=== PATIENT | male | born 1990 | race Caucasian/White ===

== ENCOUNTER 2024-09-04 08:25 | Outpatient (CLI) | payer BC | END 2024-09-04 08:26 | disposition home or self-care (01) | LOC: CSHCT 08:25 | PROVIDERS: ATTEND Internal Medicine | DX: N13.30 Unspecified hydronephrosis (principal); Z90.49 Acquired absence of other specified parts of digestive tract | CPT/HCPCS: 74178 ==

== ENCOUNTER 2025-05-08 11:25 | Outpatient (CLI) | payer BC | END 2025-05-08 11:26 | disposition home or self-care (01) | LOC: CSHSLEEP 11:25 | PROVIDERS: ATTEND Internal Medicine | DX: G47.33 Obstructive sleep apnea (adult) (pediatric) (principal); G25.81 Restless legs syndrome; R53.83 Other fatigue; F32.A Depression, unspecified; K21.9 Gastro-esophageal reflux disease without esophagitis; E66.9 Obesity, unspecified; Z68.38 Body mass index [BMI] 38.0-38.9, adult; R06.83 Snoring; G47.00 Insomnia, unspecified; R35.1 Nocturia; I10 Essential (primary) hypertension; R09.02 Hypoxemia | CPT/HCPCS: 95800 ==

== ENCOUNTER 2025-09-02 08:53 | Outpatient (CLI) | payer BC | END 2025-09-02 08:54 | disposition home or self-care (01) | LOC: CSHSLEEP 08:53 | PROVIDERS: ATTEND Internal Medicine | DX: G47.33 Obstructive sleep apnea (adult) (pediatric) (principal); R53.83 Other fatigue; F32.A Depression, unspecified; F41.9 Anxiety disorder, unspecified; K21.9 Gastro-esophageal reflux disease without esophagitis; I10 Essential (primary) hypertension; R06.83 Snoring; G47.00 Insomnia, unspecified; R35.1 Nocturia | CPT/HCPCS: 95811 ==